=== PATIENT | male | born 1955 | race Caucasian/White ===

== ENCOUNTER 2017-02-24 12:50 | Day surgery (SDC) | payer OTHER ==
[~2017-02-24] VITALS: Ht 182.9 cm; Wt 108.9 kg
[~2017-02-24 12:50] MED LIST: 0.9% Sodium Chloride 1,000 ML IV SCH; Sodium Chloride LOK Flush 10 mL Syringe IV PRN; fentaNYL-PF 50 mCg/mL 2 mL Inj IVPUSH PRN
[2017-02-24 13:22] VITALS: BP 148/85; PULSE 61; RESP 16; O2SAT 96
[2017-02-24] MEDS ORDERED: LAMO200T2 PO (13:24)
[2017-02-24] MEDS ORDERED: fentaNYL-PF 50 mCg/mL 2 mL Inj ONE (14:26)
[2017-02-24 14:59] VITALS: BP 134/70; PULSE 72; RESP 12; O2SAT 95
[2017-02-24 15:12] VITALS: BP 146/68; PULSE 77; RESP 14; O2SAT 96
[2017-02-24 15:16] VITALS: BP 137/72; PULSE 77; RESP 14; O2SAT 95
--- NOTE | 2017-02-24 15:17 | ENDO ---
[address] [address] ENDOSCOPY PROCEDURE PATIENT: MARILYN LIGHT : 1955 MR#: [id number] ADMIT: 02/24/2017 JOB ID: [id number] DATE: 02/24/2017 PROCEDURE PERFORMED: Colonoscopy. INDICATION: Screening. Patient's ASA classification is II. Mallampati score is II. MEDICATIONS: Versed 5 mg, fentanyl 100 mcg. INSTRUMENT USED: PCF-H180AL PREPARATION QUALITY: Fair. PROCEDURE DETAILS: After informed consent was obtained, the patient was brought to the GI suite, where he was placed on oxygen via nasal cannula and monitored with continuous pulse oximeter, telemetry, and blood pressure monitoring. A time-out was performed. Then, he was placed in a left lateral decubitus position and medications were administered for sedation. Digital rectal exam was performed, which was unremarkable. The colonoscope was then inserted into the rectum and advanced under direct visualization to the cecum, which was identified by the presence of the ileocecal valve and appendiceal orifice. Once the cecum was reached, the colonoscope was withdrawn back into the rectum as the mucosa and lumen were examined. In the rectum, retroflexion was performed. Following retroflexion, remaining air in the rectum was suctioned, and procedure was completed. FINDINGS: 1. In the cecum, there was a diminutive polyp that was removed with cold biopsy forceps. 2. Scattered diverticula were seen throughout the left side of the colon. IMPRESSION: 1. Cecal polyp. 2. Left-sided diverticulosis. RECOMMENDATIONS: 1. Fiber-rich diet. 2. Repeat colonoscopy in five years. COMPLICATIONS: None. ESTIMATED BLOOD LOSS: Less than 5 mL.
--- NOTE | 2017-02-28 10:21 | PATH ---
SURGICAL PATHOLOGY Attending Physician:Jose Dejesus CASE STATUS: Signed Out PATIENT NAME: MARILYN LIGHT PID: [id number] : 1955 DATE COLLECTED:02/24/2017 00:00 SPECIMEN: Colon, Polyp CLINICAL HISTORY: 1). CECAL POLYP FINAL DIAGNOSIS: Cecal Polyp, Biopsy: Colonic mucosa with no diagnostic abnormality. Negative for serrated lesion, adenoma, dysplasia and malignancy. ICD10: K63.5 GROSS DESCRIPTION: The specimen is received in one formalin filled container labeled with the patient's name, sublabeled "cecum" and consists of 2 portions of tissue which aggregate to 0.2 x 0.2 x 0.2 CM. The specimen is entirely submitted in one cassette. 02/25/2017TN ICD-9 CODES: CPT CODES: 1: 30088 Electronically Signed Out aJke Garcia MD, PhD [facility], [place] [address] Technical component performed at [facility], [facility] [address], [place], [address]
== END 2017-02-24 23:59 | disposition home or self-care (01) ==
LOC: END 12:50
PROVIDERS: ATTEND Internal Medicine Gastroenterology
DX: Z12.11 Encounter for screening for malignant neoplasm of colon (principal); K63.5 Polyp of colon; K57.30 Diverticulosis of large intestine without perforation or abscess without bleeding
CPT/HCPCS: 45380; G0500; J2250; J3010; J7030